=== PATIENT | male | born 1995 | race Caucasian/White ===

== ENCOUNTER 2017-01-28 14:22 | Emergency (ER) | payer SELFPAY | END 2017-01-28 17:00 | disposition home or self-care (01) | LOC: D.ER 14:22 | DX: R07.89 Other chest pain (principal); V89.2XXA Person injured in unspecified motor-vehicle accident, traffic, initial encounter; Y93.89 Activity, other specified; Y92.410 Unspecified street and highway as the place of occurrence of the external cause ==